=== PATIENT | male | born 1985 | race Caucasian/White ===

== ENCOUNTER 2018-05-03 20:38 | Emergency (ER) | payer OTHER ==
[2018-05-03 20:48] VITALS: BP 141/88
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
== END 2018-05-03 22:16 | disposition home or self-care (01) ==
DX: S02.5XXA Fracture of tooth (traumatic), initial encounter for closed fracture (principal); S01.511A Laceration without foreign body of lip, initial encounter; V18.0XXA Pedal cycle driver injured in noncollision transport accident in nontraffic accident, initial encounter; Y92.9 Unspecified place or not applicable; Y93.55 Activity, bike riding